=== PATIENT | male | born 1980 | race Caucasian/White ===

== ENCOUNTER 2017-01-10 19:50 | Emergency (ER) | payer BC ==
[~2017-01-10] VITALS: Ht 190.5 cm; Wt 125.1 kg
[2017-01-10] MEDS ORDERED: ILOTYCIN1 GM LEFT EYE (22:38)
[2017-01-10] MEDS ORDERED: TOBREX5 ML LEFT EYE (22:38)
[2017-01-10] MEDS ORDERED: NORCO 5/3251 TABLET PO (22:40)
[2017-01-10 23:47] VITALS: BP 135/90
== END 2017-01-10 23:51 | disposition home or self-care (01) ==
LOC: EME 19:50
PROC: 08C9XZZ Extirpation of Matter from Left Cornea, External Approach (ICD-10-PCS; principal; 2017-01-10)
DX: T15.02XA Foreign body in cornea, left eye, initial encounter (principal); W20.8XXA Other cause of strike by thrown, projected or falling object, initial encounter; Y92.009 Unspecified place in unspecified non-institutional (private) residence as the place of occurrence of the external cause; F17.200 Nicotine dependence, unspecified, uncomplicated
CPT/HCPCS: 99281; 99284